=== PATIENT | female | born 1995 | race Caucasian/White ===

== ENCOUNTER 2017-01-31 16:17 | Emergency (ER) | payer BC ==
[2017-01-31 16:26] VITALS: BP 128/75; PULSE 83; RESP 18; TEMP 97.4
--- NOTE | 2017-01-31 18:35 | ED ---
Head Injury HPI - General Chief complaint: Head Injury Stated complaint: Headache X4 days, dizzy Time Seen by Provider: 01/31/17 17:17 Source: patient Mode of arrival: ambulatory Limitations: no limitations - History of Present Illness Initial comments: Patient is a 21-year-old female presenting to the emergency department with chief complaint of headache to the left side of her head associated with intermittent nausea. Patient states she was at a [employer] on Saturday and riding a [employer]ival ride when her head got "smacked from side to side. " Patient denies loss of consciousness but states she's had persistent throbbing and sharp pain to the left side of her head for 4 days. Patient denies history of similar episode in past. MD Complaint: head injury, head pain Onset/Timin -: days(s) Mechanism of Injury: other Location: parietal (Left side), temporal Loss of Consciousness: no Previous Trauma to this Area: No Place: outdoors Radiation: none Severity: moderate Severity scale (1-10): 6 Quality: sharp, other (Throbbing) Consistency: constant Provoking factors: other Other Injuries: none Associated Symptoms: nausea, other (Patient states prior to the carnival ride she had ringing in her left ear for 3 days which has now subsided.) - Related Data Home Medications Medication Instructions Recorded Confirmed Acetaminophen [Tylenol Extra 500 mg PO Q8H PRN 01/31/17 01/31/17 Strength] Ear Ache Drops Otc 1 drop BOTH EARS DAILY PRN 01/31/17 01/31/17 Ring Relief Ear Drops 1 drop BOTH EARS DAILY PRN 01/31/17 01/31/17 Tetrahydrozoline 0.05% Ophth 1 drop BOTH EYES QID PRN 01/31/17 01/31/17 [Visine Eye Drops] Allergies/Adverse reactions: Allergies Allergy/AdvReac Type Severity Reaction Status Date / Time nickel Allergy Rash/Hives Verified 01/31/17 17:13 pollen extracts Allergy Unknown Verified 01/31/17 17:13 Review of Systems ROS Statement: Those systems with pertinent positive or pertinent negative responses have been documented in the HPI. ROS Other: All systems not noted in ROS Statement are negative. Past Medical History Past Medical History: No Reported History History of Any Multi-Drug Resistant Organisms: None Reported Additional Past Surgical History / Comment(s): nasel surg Past Psychological History: Anxiety Smoking Status: Current every day smoker Past Alcohol Use History: None Reported, Occasional Past Drug Use History: Marijuana General Exam Limitations: no limitations General appearance: alert, in no apparent distress Head exam: Present: atraumatic, normocephalic, normal inspection Eye exam: Present: normal appearance, PERRL. Absent: EOMI, scleral icterus, conjunctival injection, nystagmus, periorbital swelling, periorbital tenderness ENT exam: Present: normal exam, normal oropharynx, mucous membranes moist, TM's normal bilaterally, normal external ear exam Neck exam: Present: normal inspection, full ROM. Absent: tenderness, meningismus, lymphadenopathy Respiratory exam: Present: normal lung sounds bilaterally. Absent: respiratory distress, wheezes, rales, rhonchi, stridor Cardiovascular Exam: Present: regular rate, normal rhythm, normal heart sounds. Absent: systolic murmur, diastolic murmur, rubs, gallop, clicks GI/Abdominal exam: Present: soft, normal bowel sounds. Absent: distended, tenderness, guarding, rebound, rigid Extremities exam: Present: normal inspection, full ROM, normal capillary refill. Absent: tenderness, pedal edema, joint swelling, calf tenderness Back exam: Present: normal inspection, full ROM. Absent: tenderness, CVA tenderness (R), CVA tenderness (L), paraspinal tenderness, vertebral tenderness , rash noted Neurological exam: Present: alert, oriented X3, normal gait Expanded Neurological exam: Absent: inattentive, memory loss-remote event, memory loss- recent event, ataxia, receptive aphasia, expressive aphasia, total aphasia, tremor Patient oriented to: Present: person, place, time Speech: Present: fluid speech Cranial nerves: EOM's Intact: Normal, Gag Reflex: Normal, Facial Sensation: Normal Cerebellar function: Finger to Nose: Normal, Heel to Mckenzie: Normal, Romberg: Normal Upper motor neuron: Yasmany Neglect: Normal, Pronator Drift: Normal, Babinski Sign : Normal, Sensory Extinction: Normal Motor strength exam: RUE: 5, LUE: 5, RLE: 5, LLE: 5 Eye Response: (4) open spontaneously Motor Response: (6) obeys commands Verbal Response: (5) oriented Psychiatric exam: Present: normal affect, normal mood Skin exam: Present: warm, dry, intact, normal color Course Vital Signs 01/31/17 16:22 Temperature 97.4 F L Pulse Rate 83 Respiratory 18 Rate Blood Pressure 128/75 O2 Sat by Pulse 99 Oximetry Medical Decision Making - Medical Decision Making Head injury suspect concussion. CT brain negative. Patient instructed to follow-up with primary care physician for post-concussion syndrome. Patient instructed to return to the emergency department with any new or worsening symptoms. - Lab Data Lab Results 01/31/17 Range/Units 17:55 Urine HCG, Qual Not Detected (Not Detectd) - Radiology Data Radiology results: report reviewed CT brain without contrast: No acute intracranial hemorrhage, mass effect, or midline shift is seen. Disposition Clinical Impression: Concussion without loss of consciousness Disposition: HOME SELF-CARE Condition: Good Instructions: Concussion (ED), Post Concussion Syndrome (ED) Additional Instructions: Follow-up with primary care physician. Please return to the emergency department with any new or worsening symptoms such as increased nausea, vomiting , weakness, fevers, visual changes, confusion, or increased headache. Did not resume any contact sports until cleared by primary care physician. Referrals: None,Stated [Primary Care Provider] - 1-2 days Time of Disposition: 18:59
--- NOTE | 2017-01-31 18:53 | CT ---
EXAMINATION TYPE: CT brain wo con DATE OF EXAM: 01/31/2017 COMPARISON: NONE HISTORY: Left sided head injury 4 days ago, nauseated. CT DLP: 1018.30 mGycm. Automated Exposure Control for Dose Reduction was Utilized. TECHNIQUE: CT scan of the head is performed without contrast. FINDINGS: There is no acute intracranial hemorrhage, mass effect, or midline shift identified. The ventricles and sulci are within normal limits in size. The globes are intact and the visualized sin uses are clear. IMPRESSION: No acute intracranial hemorrhage, mass effect, or midline shift is seen.
[2017-01-31] MEDS ORDERED: ACETAMINOPHEN TAB 325 MG TAB PO STA (19:03)
== END 2017-01-31 19:09 | disposition home or self-care (01) ==
LOC: EC 16:17
DX: S06.0X0A Concussion without loss of consciousness, initial encounter (principal); F17.200 Nicotine dependence, unspecified, uncomplicated; Z91.048 Other nonmedicinal substance allergy status; W22.8XXA Striking against or struck by other objects, initial encounter; Y93.I9 Activity, other involving external motion
CPT/HCPCS: 70450; 81025; 99284